=== PATIENT | male | born 1975 | race Caucasian/White ===

== ENCOUNTER 2016-12-10 09:26 | Emergency (ER) | payer BC, OTHER ==
[2016-12-10] MEDS ORDERED: Ketorolac Tromethamine 60 MG/2 ML VIAL ONE (09:58)
--- NOTE | 2016-12-10 10:03 | RAD ---
RIGHT KNEE 4 VIEWS: Date: 12/10/16 HISTORY: Injury, right knee pain. FINDINGS/IMPRESSION: No fracture, dislocation, or bony destruction is seen. POS: [facility]
== END 2016-12-10 10:10 | disposition home or self-care (01) ==
LOC: NAV ERS 09:26
DX: S83.411A Sprain of medial collateral ligament of right knee, initial encounter (principal); I10 Essential (primary) hypertension; X50.1XXA Overexertion from prolonged static or awkward postures, initial encounter
CPT/HCPCS: 96372; J1885

== ENCOUNTER 2021-03-16 17:57 | Emergency (ER) | payer SELFPAY ==
[2021-03-16] MEDS ORDERED: Adenosine 6 MG/2 ML VIAL ONE ×2 (18:07→18:19)
[2021-03-16 18:21] LABS: #Basophils 0.1 thou/uL (0.0-0.2); #Eosinphils 0.1 thou/uL (0.0-0.7); #Lymphocytes 1.9 thou/uL (1.20-3.40); #Monocytes 0.8 thou/uL (0.11-0.59); %Basophils 0.8 % (0.0-1.0); %Eosinophils 0.8 % (0.0-10.0); %Lymphocytes 21.6 % (21.0-51.0); %Monocytes 9.4 % (0.0-10.0); %Neutrophils 67.5 % (42.0-75.0); Hemoglobin 14.2 g/dL (14.0-18.0); Mean Corpuscular Hemoglobin 22.7 pg (27.0-31.0); Mean Corpuscular Volume 78.5 fL (78.0-98.0); Mean Platelet Volume 9.2 fL (7.4-10.4); Platelet Count 253 thou/uL (130-400); RBC Distribution Width 15.5 % (11.5-14.5); Red Blood Cell (RBC) Count 6.24 mill/uL (4.70-6.10); White Blood Cell (WBC) Count 8.8 thou/uL (4.8-10.8)
[2021-03-16] MEDS ORDERED: Diltiazem 125 MG/25 ML ONE (18:34)
[2021-03-16] MEDS ORDERED: Sodium Chloride 0.9% 100 ML ONE (18:35)
[2021-03-16 18:47] LABS: ALT (SGPT) 624 U/L (8-55); AST (SGOT) 278 U/L (5-34); Albumin 4.1 g/dL (3.5-5.0); Alkaline Phosphatase 113 U/L (40-110); Anion Gap 21 mmol/L (10-20); BUN (Urea Nitrogen) 16 mg/dL (8.9-20.6); Bilirubin, Total 1.8 mg/dL (0.2-1.2); Calc. Creatinine Clearance 0 mL/min (70-130); Calcium 8.6 mg/dL (7.8-10.44); Carbon Dioxide 15 mmol/L (22-29); Chloride 98 mmol/L (98-107); Globulin 2.6 g/dL (2.4-3.5); Glucose 132 mg/dL (70-105); Lipase 41 U/L (8-78); Magnesium 1.8 mg/dL (1.6-2.6); Potassium 4.2 mmol/L (3.5-5.1); Protein, Total 6.7 g/dL (6.0-8.3); Sodium 130 mmol/L (136-145)
[2021-03-16] MEDS ORDERED: Digoxin 0.5 MG/2 ML AMP ONE (20:49)
== END 2021-03-16 21:00 | disposition short-term general hospital (02) ==
LOC: NAV ERS 17:57
DX: I48.91 Unspecified atrial fibrillation (principal); E87.1 Hypo-osmolality and hyponatremia; R74.01 Elevation of levels of liver transaminase levels; I10 Essential (primary) hypertension; Z79.899 Other long term (current) drug therapy
CPT/HCPCS: 71045; 80053; 83690; 83735; 83880; 84484; 85025; 93005; 96365; 96366; 96375; 96376; J0153; J1160